=== PATIENT | female | born 1950 | race Caucasian/White ===

== ENCOUNTER 2020-04-03 10:15 | Emergency (ER) | payer MEDICARE, BC | END 2020-04-03 10:36 | disposition home or self-care (01) | LOC: BURERS 10:15 | DX: S51.812D Laceration without foreign body of left forearm, subsequent encounter (principal); E03.9 Hypothyroidism, unspecified; F17.210 Nicotine dependence, cigarettes, uncomplicated ==

== ENCOUNTER 2021-08-04 09:00 | Outpatient (CLI) | payer MEDICARE, BC | END 2021-08-04 09:01 | disposition home or self-care (01) | LOC: BURRAD 09:00 | PROVIDERS: ATTEND Family Medicine | DX: S93.402A Sprain of unspecified ligament of left ankle, initial encounter (principal); M79.89 Other specified soft tissue disorders ==

== ENCOUNTER 2021-08-14 09:37 | Outpatient (CLI) | payer MEDICARE, BC | END 2021-08-14 09:38 | disposition home or self-care (01) | LOC: BURRAD 09:37 | PROVIDERS: ATTEND Physician Assistant | DX: S93.402D Sprain of unspecified ligament of left ankle, subsequent encounter (principal); M79.89 Other specified soft tissue disorders; S82.62XA Displaced fracture of lateral malleolus of left fibula, initial encounter for closed fracture ==